=== PATIENT | male | born 1955 | race Caucasian/White ===

== ENCOUNTER 2021-09-19 12:26 | Outpatient (CLI) | payer MEDICARE, BC, SELFPAY ==
--- NOTE | 2021-09-19 13:00 | MR_ITS ---
[address] [address] Phone:?[phone] Fax:?[phone] Referring Physician Information: Adam Linares M.D. [address] [facility] [address] Phone:?[phone] Fax:?[phone] Patient:Irma Velazquez D.O.B:?1955 Sex:?Male Phone:?[phone] [facility] MRN:?[id number] Exam Date:?09/19/2021 ? EXAM: MR PROSTATE WITHOUT AND WITH CONTRAST CLINICAL INFORMATION: Elevated PSA. COMPARISON: None. TECHNICAL INFORMATION: Examination was performed on a 1.5T magnet. High- resolution T1 axial, T2 axial, T2 FSE sagittal and T2 FSE coronal images were obtained through the prostate gland and seminal vesicles. Diffusion images were obtained in the axial plane. 15 mL of Dotarem were injected with dynamic enhanced images of the prostate gland in the axial plane. T1 fat saturation sagittal and coronal images were obtained postinjection. Images were analyzed with 3-D postprocessing online under concurrent physician supervision using a separate [employer] workstation. INTERPRETATION: The prostate gland measures 6.4 x 5.3 x 7.7 cm (TV x AP x SI) for an estimated volume of 120 cc. Transitional and central zones: There is marked glandular and stromal hyperplasia with well encapsulated BPH nodules (PI-RADS 2). No focal CZ/TZ lesions concerning for clinically significant adenocarcinoma. Peripheral zones: No focal PZ lesions concerning for clinically significant adenocarcinoma (PI-RADS 1). Pelvis: No joseph transcapsular disease. Neurovascular bundles and seminal vesicles appear intact. No pelvic lymphadenopathy or evident bone marrow disease. CONCLUSION: Marked prostatomegaly with stigmata of BPH. No suspicious (PI-RADS 3, 4, or 5) lesions identified. No joseph transcapsular, godwin, or skeletal disease in the pelvis. PI-RADS Assessment Categories: Score 1 = very low; clinically significant disease highly unlikely Score 2 = low; clinically significant disease is unlikely Score 3 = intermediate; clinically significant disease is equivocal Score 4 = high; clinically significant disease is likely Score 5 = very high; clinically significant disease is highly likely Electronically signed on 09/20/2021 9:34:00 AM by Tin Garcia M.D.
== END 2021-09-19 12:27 | disposition home or self-care (01) ==
PROVIDERS: PCP Family Medicine; Visit Provider Urology
DX: R97.20 Elevated prostate specific antigen [PSA] (principal)
CPT/HCPCS: 72197; A9575

== ENCOUNTER 2022-05-12 14:56 | Outpatient (CLI) | payer MEDICARE, BC, SELFPAY | END 2022-05-12 14:57 | disposition home or self-care (01) | LOC: LAB 15:00 | PROVIDERS: PCP Family Medicine | DX: Z76.89 Persons encountering health services in other specified circumstances (principal) | CPT/HCPCS: 99001 ==

== ENCOUNTER 2022-08-21 07:46 | Outpatient (CLI) | payer MEDICARE, BC, SELFPAY | END 2022-08-21 07:47 | disposition home or self-care (01) | PROVIDERS: PCP Family Medicine; Visit Provider Family Medicine | DX: Z00.00 Encounter for general adult medical examination without abnormal findings (principal); R73.01 Impaired fasting glucose; R97.20 Elevated prostate specific antigen [PSA]; Z13.1 Encounter for screening for diabetes mellitus; Z13.6 Encounter for screening for cardiovascular disorders | CPT/HCPCS: 80053; 80061; 84153 ==

== ENCOUNTER 2022-11-25 14:50 | Outpatient (CLI) | payer MEDICARE, BC, SELFPAY | END 2022-11-25 14:51 | disposition home or self-care (01) | PROVIDERS: PCP Family Medicine; Visit Provider Urology | DX: R97.20 Elevated prostate specific antigen [PSA] (principal) | CPT/HCPCS: 36415; 99001 ==

== ENCOUNTER 2023-01-07 06:59 | Outpatient (CLI) | payer MEDICARE, BC, SELFPAY ==
--- NOTE | 2023-01-07 07:15 | MR_ITS ---
[facility] [address] [facility] [address] Phone:?[phone] Fax:?[phone] Referring Physician Information: Micah Peña M.D. [address] [facility] [address] Phone:?[phone] Fax:?[phone] Patient:Irma Velazquez D.O.B:?1955 Sex:?Male Phone:?[phone] [facility] MRN:?[id number] Exam Date:?01/07/2023 EXAM: MR PROSTATE WITHOUT AND WITH CONTRAST CLINICAL INFORMATION: Elevated PSA. COMPARISON: MRI from 09/19/2021. TECHNICAL INFORMATION: Examination was performed on a 1.5T magnet. High- resolution T1 axial, T2 axial, T2 FSE sagittal and T2 FSE coronal images were obtained through the prostate gland and seminal vesicles. Diffusion images were obtained in the axial plane. 16 mL of Dotarem were injected with dynamic enhanced images of the prostate gland in the axial plane. T1 fat saturation sagittal and coronal images were obtained postinjection. Images were analyzed with 3-D postprocessing online under concurrent physician supervision using a separate [employer] workstation. INTERPRETATION: The prostate gland measures 6.5 x 5.6 x 7.1 cm (TV x AP x SI) for an estimated volume of 135 cc, previously 120 cc. Transitional and central zones: There is marked glandular and stromal hyperplasia with well encapsulated BPH nodules (PI-RADS 2). No focal CZ/TZ lesions concerning for clinically significant adenocarcinoma. Peripheral zones: No focal PZ lesions concerning for clinically significant adenocarcinoma (PI-RADS 1). Pelvis: No joseph transcapsular disease. Neurovascular bundles and seminal vesicles appear intact. No pelvic lymphadenopathy or evident bone marrow disease. CONCLUSION: Stable exam. Marked prostatomegaly with stigmata of BPH. No suspicious (PI-RADS 3, 4, or 5) lesions identified. No joseph transcapsular, godwin, or skeletal disease in the pelvis. PI-RADS Assessment Categories: Score 1 = very low; clinically significant disease highly unlikely Score 2 = low; clinically significant disease is unlikely Score 3 = intermediate; clinically significant disease is equivocal Score 4 = high; clinically significant disease is likely Score 5 = very high; clinically significant disease is highly likely Electronically signed on 01/07/2023 4:34:00 PM by Tin Garcia M.D.
== END 2023-01-07 07:00 | disposition home or self-care (01) ==
LOC: MRI 07:01
PROVIDERS: PCP Family Medicine; Visit Provider Family Medicine
DX: R97.20 Elevated prostate specific antigen [PSA] (principal)
CPT/HCPCS: 72197; A9575

== ENCOUNTER 2023-01-13 07:15 | Outpatient (CLI) | payer MEDICARE, BC, SELFPAY ==
--- NOTE | 2023-01-13 08:44 | W.ANESCHARGE ---
Anesthesia Charges Start Date/Time Anesthesia Start Date: 01/13/23 Anesthesia Start Time: 08:14 Stop Date/Time Anesthesia Stop Date: 01/13/23 Anesthesia Stop Time: 08:42
--- NOTE | 2023-01-13 09:19 | W.ANESCHARGE ---
Anesthesia Charges Start Date/Time Anesthesia Start Date: 01/13/23 Anesthesia Start Time: 08:14 Stop Date/Time Anesthesia Stop Date: 01/13/23 Anesthesia Stop Time: 08:42
== END 2023-01-13 07:16 | disposition home or self-care (01) ==
LOC: OP CLINIC 07:15
PROVIDERS: PCP Family Medicine; Visit Provider Surgery
DX: Z12.11 Encounter for screening for malignant neoplasm of colon (principal); K64.4 Residual hemorrhoidal skin tags
CPT/HCPCS: 00811; 00812; 45378; J2704

== ENCOUNTER 2023-08-17 08:32 | Outpatient (CLI) | payer MEDICARE, BC, SELFPAY ==
--- OUTSIDE RECORDS SUMMARY | 2023-08-19 04:30 | XMS_ITS | Encounter Summary ---
Author Organization [facility] Address [address] [place] [address] Care Team Providers Care Library Media Specialist Name Role Phone Howard Becerra MD Primary Care Provide r Verito Montoya PA-C Unavailable [phone]- [phone] Weight, Jose Maria Zamora MD Unavailable [phone]- [phone] Howard Becerra MD Unavailable [phone]- [phone] SantiagoBlayne MD Unavailable [phone] Encounter Details Date Type Department Care Team (Late st Contact Info) Description 07/09/2020 [facility] Clinical Research [address] [place] [phone] Vic Sun Social History Tobacco Use Types Packs/Day Years Used Date Smoking Tobacco: Never Smokeless Tobacco: Never Alcohol Use Standard Drinks/Week Comments Yes 0 (1 standard drink = 0.6 oz pur e alcohol) 6 drinks per week - red wine- PHQ-2 Answer Date Recorded PHQ-2 Score 0 04/07/2018 Sex and Gender Information Value Date Recorded Sex Assigned at Male 05/02/2020 9:45 AM SUGAR REPROCESS OPERATOR HEAD Gender Identity Male 05/02/2020 9:45 AM SUGAR REPROCESS OPERATOR HEAD Sexual Orientation Straight 05/02/2020 9: 45 AM SUGAR REPROCESS OPERATOR HEAD documented as of this encounter Plan of Treatment Not on file documented as of this encounter Visit Diagnoses Not on filedocumented in this encounter Care Teams Library Media Specialist Relationship Specialty Start Date End Date Howard Becerra MD PCP - General Family Practice 09/07/14 Verito Montoya PA-C [address] [facility] [address] [place], [place] [id number] Physician Travel Writer Physician Travel Writer 02/26/15 Jose Maria Ruiz MD [address] [place] [id number] Urology 03/16/17 Howard Becerra MD [address] [id number] Assigned PCP 10/01/14 04/13/21 Blayne Henderson MD [address] [place] [id number] Dermatology 09/21/18 documented as of this encounter
--- OUTSIDE RECORDS SUMMARY | 2023-08-19 04:30 | XMS_ITS | Clinical Summary ---
Author Organization [facility] Address [address], [place] [address] Care Team Providers Care Material Manager Name Role Phone No Primary/Referring, Phnestor Primary Care Provider Unavailable Source Comments You are receiving this document as you are listed as the primary care provider,follow-up provider, or the patient has been referred to you for consultation.This is in compliance with the Medicare and[facility] E[facility] Incentive Program,which states Providers who transition their patient to another setting of careor provider of care or refers their patient to another provider of care shouldprovide summary care record for each transition of care or referral. [facility] Allergies No known active allergies Medications No known medications Active Problems Problem Noted Date Diagnosed Date Right knee pain 11/13/2012 Overview: Patellofemoral syndrome, right knee Immunizations Name Administration Dates Next Due IPV (Polio) 03/06/1993 Td 03/06/1993 YF (Yellow Fever) 03/06/1993 Social History Tobacco Use Types Packs/Day Years Used Date Smoking Tobacco: Never Smokeless Tobacco: Never Alcohol Use Standard Drinks/Week Comments Yes 0 (1 standard drink = 0.6 oz pur e alcohol) approximately 1 drink daily Sex and Gender Information Value Date Recorded Sex Assigned at Not on file Gender Identity Not on file Sexual Orientation Not on file Last Filed Vital Signs Vital Sign Reading Time Taken Comments Blood Pressure 112/73 08/12/2018 2:50 PM CDT Pulse - - Temperature 37 ??C (98.6 ??F) 08/12/2018 2:50 PM CDT Respiratory Rate - - Oxygen Saturation - - Inhaled Oxygen Concentration - - Weight 77.1 kg (170 lb) 03/24/2019 9:16 AM ASSEMBLER BODY Height 185.4 cm (6' 1) 03/24/2019 9:16 AM ASSEMBLER BODY Body Mass Index 22.43 03/24/2019 9:16 AM ASSEMBLER BODY Plan of Treatment Health Maintenance Due Date Last Done Comments Colon Cancer Screening Plan Due 1955 Hep C Screening (Preventive Services) 1955 PSA Screening Discussion 1955 Adult Preventive Visit 10/29/1973 Cholesterol 10/29/1990 Pneumococcal 65+ Yrs (1 - PCV) 10/29/2020 COVID-19 Vaccine (3 - season) 2022 05/25/2020, 05/05/2020 Influenza (Season Ended) 2023 020, 01/12/2019, 11/14/2017, Additional history exists DTaP/Tdap/Td (2 - Tdap) 09/20/2024 09/21/19 15, 03/27/2005, 03/06/1993 IPV (Polio) Aged Out 03/06/1993 No longer eligi ble based on patient's age to complete this topic HepA Aged Out 01/30/2006, 03/2005, 03/17/2005, Additional history exists No longer eligible based on patient's age to complete this topic Zoster/Shingles Completed 10/11/2018, 04/07/2018 HepB Aged Out No longer eligi ble based on patient's age to complete this topic Hib Aged Out No longer eligi ble based on patient's age to complete this topic MCV4 Aged Out No longer eligi ble based on patient's age to complete this topic Care Teams Material Manager Relationship Specialty Start Date End Date No Primary/Referring, Shai PCP - General 12/15/17
--- OUTSIDE RECORDS SUMMARY | 2023-08-19 04:30 | XMS_ITS | Clinical Summary ---
Author Organization [facility] Address [place], [place] [address] Care Team Providers Care Health And Social Care Teacher Name Role Phone Martin Rowe MD Primary Care Provider [phone] Allergies No known active allergies Medications No known medications Active Problems Problem Noted Date Diagnosed Date Elevated PSA 07/17/2020 Overview: Patient prefers yearly digital rectal exams of his prostate. Immunizations Name Administration Dates Next Due COVID-19 vaccine (Konokopia [employer] 30mcg/0.3mL) PF, MDV 12/19/2020,05/25/2020,05/05/2020 Hepatitis A (Adult) 01/30/2006,03/17/2005 Hepatitis A, Unspecified 01/30/2006,03/17/2005 Inactivated Polio Vaccine 03/06/1993 Influenza RIV4 (Age 18+ Years) PRESERV FREE 11/01 Influenza Virus, Unspecified 02/10/2011 Influenza, High-dose Quadriv alent Inactivated 11/30/2020 Influenza, IIV3 (Age >=3 years) 01/04/2015 Influenza, IIV4 11/14/2017 Influenza, IIV4 (=>6mos) MDV 01/12/2019 Td (Age >=7 Years) 03/27/2005,03/06/1993 Td, Preservative Free (age >= 7 Years) 6,08/22/1994 Tdap 09/20/2014 Typhoid (injectable) 03/17/2005 Yellow Fever (Stamaril) 03/06/1993 Zoster (Shingrix-RZV, recombinant) 10/11/2018, Family History Medical History Relation Name Comments Obesity Brother Abnormal EKG Father Dementia Father may have been t riggered by TBI; he of dementia at 754 Hypertension Mother Relation Name Status Comments Brother Alive Father (Age 75) Fell off l adder - facial trauma, ppt TBI, dementia Mother Alive Social History Tobacco Use Types Packs/Day Years Used Date Smoking Tobacco: Never Smokeless Tobacco: Never Tobacco Cessation:Counseling Given: Yes Alcohol Use Standard Drinks/Week Comments Yes 10 (1 standard drink = 0.6 oz pu re alcohol) Daily red wine PHQ-2 Answer Date Recorded PHQ-2 TOTAL SCORE 0 07/22/2021 Social Connections Answer Date Recorded Frequency of Communication with Friends and Fami ly Not on file 07/23/2022 Financial Resource Strain Answer Date R ecorded Difficulty of Paying Living Expenses 3 07/22/2021 Difficulty of Paying Living Expenses Not on file 07/22/2021 Food Insecurity Answer Date Recorded Worried About Running Out of Food in the Last Ye ar 1 07/22/2021 Transportation Needs Answer Date Record ed Lack of Transportation (Medical) 1 07/22/2021 Housing Stability Answer Date Recorded Unable to Pay for Housing in the Last Year 1 07/22/2021 Sex and Gender Information Value Date Recorded Sex Assigned at Male 09/15/2021 11:22 AM CDT Gender Identity Male 09/15/2021 11:22 AM CDT Sexual Orientation Straight 09/15/2021 11 :22 AM CDT Obstetrics History Last Filed Vital Signs Vital Sign Reading Time Taken Comments Blood Pressure 112/80 07/22/2021 8:03 AM CDT Pulse 66 07/22/2021 8:03 AM CDT Temperature 36.9 ??C (98.4 ??F) 07/16/2020 9:17 AM CD T Respiratory Rate 16 09/24/2020 10:4 1 AM CDT Oxygen Saturation 98% 07/22/2021 8:03 AM CDT Inhaled Oxygen Concentration - - Weight 80.2 kg (176 lb 11.2 oz) 07/22/2021 8:03 AM CDT Height 183.8 cm (6' 0.36) 07/22/2021 8:03 AM CD T Body Mass Index 23.73 07/22/2021 8:03 AM CDT Plan of Treatment Health Maintenance Due Date Last Done Comments Pneumococcal series for age 65+ (1 of 1 - PCV) 10/29/2020 BMI (ht and wt on same day) for age 18+ 07/22/2022 07/22/2021, 07/16/2020 Depression screening for age 12+ 07/22/2022 07/22/2021, 07/17/2020, 07/16/2020 Medicare Wellness for age 65+ 07/23/2022 07/22/2021 Fecal testing non-DNA (FIT,FOBT,iFOBT) for age 45-75 07/26/2022 07/26/2021, 07/24/2020 COVID-19 vaccine series ( season) 2022 12/19/2020, 05/25/2020, 05/05/2020 Influenza for age 65+ 11/01/2023 11/30/2020 , 11/28/2019, 01/12/2019, Additional history exists Tetanus booster 09/20/2024 09/20/2014, 03/03, 03/27/2005, Additional history exists Lipids for age 45-75 07/22/2026 07/22/2021, 07/17/19 21 Tdap Completed 09/20/2014 Zoster (shingles) series for age 50+ Completed 10/11/2018, 04/07/2018 Hepatitis C screening for ag e 18-79 Completed 07/22/2021 Procedures Procedure Name Priority Date/Time Associated Diagnosis Comments OCCULT BLOOD IFOBT STOOL Routine 07/26/2021 3:25 PM CDT Screening for colon cancer ANTI HCV Routine 07/22/2021 9:03 AM CDT Need for hepatitis C screening test LIPID PANEL W REFLEX MEASURED LDL Routine 07/22/2021 9:03 AM CDT Screening for hyperlipidemia from Last 3 Months or Most Recently Relevant to Health Maintenance Results * OCCULT BLOOD IFOBT STOOL [[id number]] (07/26/2021 3:25 PM CDT) STOOL BLOOD ,IFOBT Negative Negative 08/07/2021 3:36 PM CDT [facility] Stool STOOL SPECIMEN / Unknown Non-Blood / Unknown 07/26/2021 3:25 PM CDT 08/07/2021 3:25 PM CDT Martin Rowe MD LABORATORY [facility] [address] [place] [address], * LIPID PANEL W REFLEX MEASURED LDL (07/22/2021 9:03 AM CDT) CHOLESTEROL,TOTAL 181 100 - 199 mg/dL 07/22/2021 5:28 PM CDT [facility] TRIGLYCERIDES 61 <150 mg/dL 07/22/2021 5:28 PM CDT [facility] HDL CHOLESTEROL 57 >40 mg/dL 5:28 PM CDT [facility] NON-HDL CHOLESTEROL 124 <145 mg/dl 07/22/2021 5:28 PM CDT [facility] CHOL/HDL RATIO 3.18 <4.50 07/22/2021 5:28 PM CDT [facility] LDL CHOLESTEROL 112 <=130 mg/dL 07/22/2021 5:28 PM CDT [facility] VLDL CHOLESTEROL 12 <=30 mg/dL 07/22/2021 5:28 PM CDT [facility] PROVIDER ORDERED STATUS RANDOM 07/22/2021 5:28 PM CDT [facility] Blood BLOOD SPECIMEN / Unknown Venipuncture / Unknown 07/22/2021 9:03 AM CDT 07/22/2021 9:07 AM CDT Martin Rowe MD CHEMISTRY [facility] [address] [place] [address], [place] * ANTI HCV (07/22/2021 9:03 AM CDT) HEPATITIS C ANTIBODY Non-React trev Non-React trev 07/22/2021 5:38 PM CDT [facility] Comment:Antibodies to HCV no t detected; does not exclude the possibility of exposure to HCV. Blood BLOOD SPECIMEN / Unknown Venipuncture / Unknown 07/22/2021 9:03 AM CDT 07/22/2021 9:07 AM CDT Martin Rowe MD SEND OUTS [facility] [address] [place] [address], from Last 3 Months or Most Recently Relevant to Health Maintenance Advance Directives Documents on File Type Date Recorded Patient Zone Supervisor Firearms Expl anation Healthcare Directive 10/14/2021 3:37 PM HE ALTH CARE DIRECTIVE 10/09/2021 Care Teams Health And Social Care Teacher Relationship Specialty Start Date End Date Matrin Rowe MD [facility] [place] [address] [address] PCP - General Family Practice 07/22/21
--- OUTSIDE RECORDS SUMMARY | 2023-08-19 04:30 | XMS_ITS | Encounter Summary ---
Author Organization [facility] Address [address] [place] [address] Care Team Providers Care Fit Model Name Role Phone Howard Becerra MD Primary Care Provide r Verito Montoya PA-C Unavailable [phone]- [phone] Weight, Jose Maria Zamora MD Unavailable [phone] Howard Becerra MD Unavailable [phone] SantiagoBlayne coleman MD Unavailable [phone] Henry Gupta MD Unavailable Verito Montoya PA-C Unavailable [phone]- [phone] Reason for Visit * Reason Onset Date Comments Appointment 07/23/2018 Cryotherapy Encounter Details Date Type Department Care Team (Late st Contact Info) Description 07/23/2018 Telephone [facility] [address] [facility] [address] [place] [address] Verito Montoya PA-C [address] [place], [place] [id number] Appointment (Cryotherapy) Social History Tobacco Use Types Packs/Day Years Used Date Smoking Tobacco: Never Smokeless Tobacco: Never Alcohol Use Standard Drinks/Week Comments Yes 0 (1 standard drink = 0.6 oz pur e alcohol) 6 drinks per week - red wine- PHQ-2 Answer Date Recorded PHQ-2 Score 0 04/07/2018 Sex and Gender Information Value Date Recorded Sex Assigned at Male 05/02/2020 9:45 AM MANAGER UNDERWRITING Gender Identity Male 05/02/2020 9:45 AM MANAGER UNDERWRITING Sexual Orientation Straight 05/02/2020 9: 45 AM MANAGER UNDERWRITING documented as of this encounter Miscellaneous Notes * Telephone Encounter - Shreyas Mishra - 07/23/2018 11:53 AM CDT [facility] Phone Message May a detailed message be left on voicemail: yes Reason for Call: Other: Pt calling to schedule Cryotherapy per 07/21 visit summary. Please call Pt to discuss. Thanks. Action Taken: Message routed to: [facility] Derm documented in this encounter Plan of Treatment Not on file documented as of this encounter Visit Diagnoses Not on filedocumented in this encounter Care Teams Fit Model Relationship Specialty Start Date End Date Howard Becerra MD PCP - General Family Practice 09/07/14 Verito Montoya PA-C [address] [place] [address] [address] [place], [place] [phone] Physician Wheel Inspector Physician Wheel Inspector 02/26/15 Jose Maria Ruiz MD [address] [place] [address] Urology 03/16/17 Howard Becerra MD [address] [place] [address] Assigned PCP 10/01/14 04/13/21 Blayne Henderson MD [address] [place], [place] [phone] Dermatology 09/21/18 Henry Gupta MD [address] [place] [address] Assigned Surgical Provider 12/23/19 04/21/20 Verito Montoya PA-C [address] [place] [address] Assigned Pediatric Specialist Provider 12/23/19 04/01/20 documented as of this encounter
--- OUTSIDE RECORDS SUMMARY | 2023-08-19 04:30 | XMS_ITS | Clinical Summary ---
Author Organization [facility] Address [address] [place] [address] Care Team Providers Care Asset Protection Agent Name Role Phone Howard Becerra MD Primary Care Provide r Verito Montoya PA-C Unavailable [phone]- [phone] Weight, Jose Maria Zamora MD Unavailable [phone]- [phone] SantiagoBlayne MD Unavailable [phone] Allergies Active Allergy Reactions Criticality Noted Date Comments No Known Drug Allergy 03/29/2004 Medications Medication Sig Dispensed Refills Start Date End Date Status ranitidine (ZANTAC) 150 MG tabletIndications:G astroesophageal reflux disease, esophagitis presence not specified Take 1 tablet (150 mg) by mouth daily 180 tablet 3 04/07/2018 Active Additional Information Patient not taking.Reported on 10/19/2018 cyclobenzaprine (FLEXERIL) 10 MG tabletIndications:L ow back pain, unspecified back pain laterality, unspecified chronicity, with sciatica presence unspecified Take 0.5-1 tablets (5-10 mg) by mouth 3 times daily as needed for muscle spasms 21 tablet 08/11/2018 Active Additional Information Patient not taking.Reported on 10/19/2018 meloxicam (MOBIC) 15 MG tabletIndications:L ow back pain, unspecified back pain laterality, unspecified chronicity, with sciatica presence unspecified Take 1 tablet (15 mg) by mouth daily 10 tablet 08/11/2018 Active Additional Information Patient not taking.Reported on 10/19/2018 Active Problems Problem Noted Date Diagnosed Date Multiple benign nevi 03/01/2015 Seborrheic keratosis 03/01/2015 Skin cancer screening 03/01/2015 Anxiety 07/13/2014 Multiple pigmented nevi 04/09/2012 Hepatitis B carrier Erectile dysfunction GERD (gastroesophageal reflux disease) CARDIOVASCULAR SCREENING; LDL GOAL LESS THAN 160 Resolved Problems Problem Noted Date Diagnosed Date Resolved Date Advanced directives, counseling/discussion 04/09/2012 08/17/2023 Immunizations Name Administration Dates Next Due HEPA 01/30/2006,03/17/2005 Influenza (IIV3) PF 01/04/2015,11/29/2009 Influenza Vaccine >6 months,quad, PF 11/14/2017 TD,PF 7+ (Tenivac) 03/27/2005,08/22/1994 TDAP Vaccine (Adacel) 09/20/2014 Typhoid IM 03/17/2005 Zoster recombinant adjuvanted (SHINGRIX) 019,04/07/2018 Family History Medical History Relation Comments Genetic Disorder Brother 2 brother has two children with CP Obesity Brother 3 Respiratory Brother 4 uses CPAP Obesity Brother 5 Allergies Daughter 1 Cerebrovascular Disease Daughter 2 Alzheimer Disease Father demensia Gastrointestinal Disease Father hernia repair Hypertension Father Breast Cancer Maternal Grandmother Diabetes Mother type 2 C.A.D. Paternal Grandfather Cerebrovascular Disease Paternal Grandfather C.A.D. Paternal Uncle Melanoma No family hx of Skin Cancer No family hx of Relation Status Comments Brother 1 Alive Brother 2 Brother 3 Brother 4 Brother 5 Daughter 1 Alive adoptive age 13 Daughter 2 Father Dementia Maternal Grandfather Maternal Grandmother Mother Alive HTN Paternal Grandfather Paternal Grandmother Paternal Uncle Son Alive age 11 Social History Tobacco Use Types Packs/Day Years Used Date Smoking Tobacco: Never Smokeless Tobacco: Never Tobacco Cessation:Counseling Given: Yes Alcohol Use Standard Drinks/Week Comments Yes 0 (1 standard drink = 0.6 oz pur e alcohol) 6 drinks per week - red wine- PHQ-2 Answer Date Recorded PHQ-2 Score 0 04/07/2018 Adolescent Education Answer Date Record ed Getting School Help Needed Not on file 12/14 Sex and Gender Information Value Date Recorded Sex Assigned at Male 05/02/2020 9:45 AM COAL MILL OPERATOR Gender Identity Male 05/02/2020 9:45 AM COAL MILL OPERATOR Sexual Orientation Straight 05/02/2020 9: 45 AM COAL MILL OPERATOR Last Filed Vital Signs Vital Sign Reading Time Taken Comments Blood Pressure 135/80 10/19/2018 10:59 AM CDT Pulse 74 10/19/2018 10:59 AM CDT Temperature 36.6 ??C (97.8 ??F) 04/07/2018 7:53 AM CS T Respiratory Rate 16 04/07/2018 7:53 AM COAL MILL OPERATOR Oxygen Saturation 99% 04/07/2018 7:53 AM COAL MILL OPERATOR Inhaled Oxygen Concentration - - Weight 79.6 kg (175 lb 8 oz) 04/07/2018 7:53 AM COAL MILL OPERATOR Height 182.9 cm (6') 04/07/2018 7:53 AM COAL MILL OPERATOR Body Mass Index 23.8 04/07/2018 7:53 AM COAL MILL OPERATOR Plan of Treatment Not on file Advance Directives For more information, please contact: [phone] * Full Code (Latest Code Status on File) Date Activated Date Inactivated Comments 04/09/2012 12:34 PM * No Code Status Date Activated Date Inactivated Comments 04/01/2004 6:53 AM 04/01/2004 7:53 AM Care Teams Asset Protection Agent Relationship Specialty Start Date End Date Howard Becerra MD PCP - General Family Practice 09/07/14 Verito Montoya PA-C [address] [place] [address] [phone] Physician Science Consultant Physician Science Consultant 02/26/15 Jose Maria Ruiz MD [address] [place] [address] Urology 03/16/17 Blayne Henderson MD [address] [place] [address] Dermatology 09/21/18
--- OUTSIDE RECORDS SUMMARY | 2023-08-19 04:30 | XMS_ITS ---
Author Organization [facility] Address [address] [place] [address] Care Team Providers Care Gallery Or Museum Technician Name Role Phone Unavailable Unavailable Unavailable Surgery Details Not on file Complications Check Surgery Details section. Procedure Estimated Blood Loss Check Surgery Details section. Procedure Findings Check Surgery Details section. Procedure Specimens Taken Check Surgery Details section.
--- OUTSIDE RECORDS SUMMARY | 2023-08-19 04:30 | XMS_ITS | Encounter Summary ---
Author Organization [facility] Address [address] [place] [address] Care Team Providers Care Infection Control Practitioner Name Role Phone Howard Becerra MD Primary Care Provide r Verito Montoya PA-C Unavailable [phone]- [phone] Weight, Jose Maria Zamora MD Unavailable [phone] Howard Becerra MD Unavailable [phone]- [phone] SantiagoBlayne MD Unavailable [phone] Henry Gupta MD Unavailable Verito Montoya PA-C Unavailable [phone]- [phone] Encounter Details Date Type Department Care Team (Late st Contact Info) Description 07/30/2018 MyC Medical Advice [facility] Dermatology [address] [address] Verito Montoya PA-C [address] [place], [place] [phone] Social History Tobacco Use Types Packs/Day Years Used Date Smoking Tobacco: Never Smokeless Tobacco: Never Alcohol Use Standard Drinks/Week Comments Yes 0 (1 standard drink = 0.6 oz pur e alcohol) 6 drinks per week - red wine- PHQ-2 Answer Date Recorded PHQ-2 Score 0 04/07/2018 Sex and Gender Information Value Date Recorded Sex Assigned at Male 05/02/2020 9:45 AM SCIENTIST PROPAGATOR Gender Identity Male 05/02/2020 9:45 AM SCIENTIST PROPAGATOR Sexual Orientation Straight 05/02/2020 9: 45 AM SCIENTIST PROPAGATOR documented as of this encounter Miscellaneous Notes * Telephone Encounter - Macie Yancey CMA - 09/23/2018 7:44 AM CDT Kurt, I apologize for the delayed response, I am one of the medical assistants that works in Dermatology surgery with Dr. Gupta. I forwarded your concern to Dr. Gupta and he says that at your appointment we can take a look at it, if there is a concern that it is cancer we could do a frozen section. If itis a cyst we would remove the whole thing and send it for permanent sections, cysts can get bigger quickly if they get inflamed. Please call us at [phone] or let us know what your schedule looks like so we can get you scheduled with Dr. Gupta. Thanks, Macie Obrien CMA documented in this encounter Plan of Treatment Not on file documented as of this encounter Visit Diagnoses Not on filedocumented in this encounter Care Teams Infection Control Practitioner Relationship Specialty Start Date End Date Howard Becerra MD PCP - General Family Practice 09/07/14 Verito Montoya PA-C [address] [facility] 98 [place], [place] [phone] Physician Sustainability Executive Director Physician Sustainability Executive Director 02/26/15 Jose Maria Ruiz MD [address] [place], [place] 819[address] Urology 03/16/17 Howard Becerra MD [address] [address] Assigned PCP 10/01/14 04/13/21 Blayne Henderson MD 909 [place] [address] MD Carr 09/21/18 Henry Gupta MD [address] [place] [address] Assigned Surgical Provider 12/23/19 04/21/20 Verito Montoya PA-C [address] [place] [address] Assigned Pediatric Specialist Provider 12/23/19 04/01/20 documented as of this encounter
--- OUTSIDE RECORDS SUMMARY | 2023-08-19 04:30 | XMS_ITS | Encounter Summary ---
Author Organization [facility] Address [address] [place] [address] Care Team Providers Care Supervisor Pile Driving Name Role Phone Howard Becerra MD Primary Care Provide r Verito Montoya PA-C Unavailable [phone]- [phone] Weight, Jose Maria Zamora MD Unavailable [phone]- [phone] Howard Becerra MD Unavailable [phone]- [phone] Howard Becerra MD Unavailable [phone]- [phone] Blayne Henderson MD Unavailable [phone] Henry Gupta MD Unavailable Verito Montoya PA-C Unavailable [phone]- [phone] Encounter Details Date Type Department Care Team (Late st Contact Info) Description 03/30/[address] [address] [facility] Social History Tobacco Use Types Packs/Day Years Used Date Smoking Tobacco: Never Smokeless Tobacco: Never Alcohol Use Standard Drinks/Week Comments Yes 0 (1 standard drink = 0.6 oz pure alcohol) 8-10 drinks per week - red wine- PHQ-2 Answer Date Recorded PHQ-2 Score 0 03/09/2018 Sex and Gender Information Value Date Recorded Sex Assigned at Male 05/02/2020 9:45 AM RN DOCUMENT IMPROVEMENT Gender Identity Male 05/02/2020 9:45 AM RN DOCUMENT IMPROVEMENT Sexual Orientation Straight 05/02/2020 9: 45 AM RN DOCUMENT IMPROVEMENT documented as of this encounter Plan of Treatment Not on file documented as of this encounter Visit Diagnoses Not on filedocumented in this encounter Care Teams Supervisor Pile Driving Relationship Specialty Start Date End Date Howard Becerra MD PCP - General Family Practice 09/07/14 Howard Becerra MD [address] [id number] PCP - Assigned PCP 10/01/14 05/04/18 Verito Montoya PA-C [address] [place] [address] 349265 Physician X Ray Consultant Physician X Ray Consultant 02/26/15 Jose Maria Ruiz MD [address] [place] [address] [id number] Urology 03/16/17 [place] [address] [place] [address] Assigned PCP 10/01/14 04/13/21 Blayne Henderson MD [address] [place] [address] [phone] Dermatology 09/21/18 Henry Gupta MD [address] [place] [address] 269115 Assigned Surgical Provider 12/23/19 04/21/20 Verito Montoya PA-C [address] [place] [address] [id number] Assigned Pediatric Specialist Provider 12/23/19 04/01/20 documented as of this encounter
--- OUTSIDE RECORDS SUMMARY | 2023-08-19 04:30 | XMS_ITS | Encounter Summary ---
Author Organization [facility] Address [address] [place] [address] Care Team Providers Care Public Relations Supervisor Name Role Phone Howard Becerra MD Primary Care Provide r Verito Montoya PA-C Unavailable [phone]- [phone] Weight, Jose Maria Zamora MD Unavailable [phone]- [phone] Howard Becerra MD Unavailable [phone]- [phone] Howard Becerra MD Unavailable [phone]- [phone] Blayne Henderson MD Unavailable [phone] Henry Gupta MD Unavailable Verito Montoya PA-C Unavailable +1- [phone] Reason for Visit * Reason Onset Date Comments Refill Request 04/07/2018 ranitidine Encounter Details Date Type Department Care Team (Late st Contact Info) Description 04/07/[address] [address] Howard Becerra MD [address] [address] Refill Request (ranitidine ) Social History Tobacco Use Types Packs/Day Years Used Date Smoking Tobacco: Never Smokeless Tobacco: Never Alcohol Use Standard Drinks/Week Comments Yes 0 (1 standard drink = 0.6 oz pur e alcohol) 6 drinks per week - red wine- PHQ-2 Answer Date Recorded PHQ-2 Score 0 04/07/2018 Sex and Gender Information Value Date Recorded Sex Assigned at Male 05/02/2020 9:45 AM MEDICAL LEAD Gender Identity Male 05/02/2020 9:45 AM MEDICAL LEAD Sexual Orientation Straight 05/02/2020 9: 45 AM MEDICAL LEAD documented as of this encounter Miscellaneous Notes * Telephone Encounter - Lino Lindquist RN - 04/07/2018 8:40 AM MEDICAL LEAD This med was hx. Pt was seen in clinic on 04/07/18. Please send in refill. MAKENNA Huynh CAL LEAD documented in this encounter Plan of Treatment Not on file documented as of this encounter Visit Diagnoses Diagnosis Gastroesophageal reflux disease, esophagitis presence not specified- Primary documented in this encounter Care Teams Public Relations Supervisor Relationship Specialty Start Date End Date Howard Becerra MD PCP - General Family Practice 09/07/14 Howard Becerra MD [address] [address] PCP - Assigned PCP 10/01/14 05/04/18 Verito Montoya PA-C 420 [facility] 98 [place], [place] 3[address] Physician Structural Engineer Physician Structural Engineer 02/26/15 Jose Maria Ruiz MD 909 [place], [place] 325335 Urology 03/16/17 Howard Becerra MD 2270 [facility] 200 [place] [address] Assigned PCP 10/01/14 04/13/21 Blayne Henderson MD 909 [place] [address] MD Carr 09/21/18 Henry Gupta MD 909 [place], [place] 248445 Assigned Surgical Provider 12/23/19 04/21/20 Verito Montoya PA-C [address] [place] [address] [id number] Assigned Pediatric Specialist Provider 12/23/19 04/01/20 documented as of this encounter
--- OUTSIDE RECORDS SUMMARY | 2023-08-19 04:30 | XMS_ITS | Referral Summary ---
Author Organization [facility] Address [address] [place] [address] Care Team Providers Care Personal Lines Agent Name Role Phone Unavailable Primary Care Provider Unavailabl e Source Comments Patient records contain information from all sites at [facility]. For routine questions regarding patient records, call [phone] during business hours, M-F 8:00 AM - 5:00 PM Central Time. Record requests for emergency care only can be directed to [phone] at any time.[facility] Medications Medication Sig Dispensed Refills Start Date End Date Status tadalafiL (Cialis) 5 mg tablet Take 1 tablet (5 mg total) by mouth daily. 30 tablet 11 12/02/2022 Active Social History Tobacco Use Types Packs/Day Years Used Date Smoking Tobacco: Never Assessed Nutrition Answer Date Recorded Nutrition: EVOO Fat Source Unknown 11/07 Nutrition: Servings of Fruits/Vegetables per Day Not on file 11/07/2021 Dental Answer Date Recorded Dental: Regular Dentist Unknown 11/08/19 22 Sex and Gender Information Value Date Recorded Sex Assigned at Not on file Gender Identity Not on file Sexual Orientation Not on file Last Filed Vital Signs Vital Sign Reading Time Taken Comments Blood Pressure 125/82 11/19/2021 9:56 AM CDT Pulse 72 11/19/2021 9:56 AM CDT Temperature - - Respiratory Rate - - Oxygen Saturation - - Inhaled Oxygen Concentration - - Weight - - Height - - Body Mass Index - - Plan of Treatment Not on file Procedures Procedure Name Priority Date/Time Associated Diagnosis Comments EXTI BASIC METABOLIC PANEL, S/P Routine 07/22/2021 9:03 AM CDT from Last 3 Months or Most Recently Relevant to Health Maintenance [address] [place], [place] [address]
--- OUTSIDE RECORDS SUMMARY | 2023-08-19 04:30 | XMS_ITS | Referral Summary ---
Author Organization [facility] Address [address] [place] [address] Care Team Providers Care Manager Statistical Name Role Phone Howard Becerra MD Primary Care Provide r Verito Montoya PA-C Unavailable +1- [phone] Weight, Jose Maria Zamora MD Unavailable [phone]- [phone] SantiagoBlayne MD Unavailable [phone] Allergies Active Allergy Reactions Criticality Noted Date [...] IM 03/17/2005 Zoster recombinant adjuvanted (SHINGRIX) 019,04/07/2018 Social History Tobacco Use Types Packs/Day Years [...] Sex Assigned at Male 05/02/2020 9:45 AM ACCOUNTS COLLECTOR Gender Identity Male 05/02/2020 9:45 AM ACCOUNTS COLLECTOR Sexual Orientation Straight 05/02/2020 9: 45 AM ACCOUNTS COLLECTOR Last Filed Vital Signs Vital Sign Reading Time Taken Comments Blood Pressure 135/80 10/19/2018 10:59 AM CDT Pulse 74 10/19/2018 10:59 AM CDT Temperature 36.6 ??C (97.8 ??F) 04/07/2018 7:53 AM CS T Respiratory Rate 16 04/07/2018 7:53 AM ACCOUNTS COLLECTOR Oxygen Saturation 99% 04/07/2018 7:53 AM ACCOUNTS COLLECTOR Inhaled Oxygen Concentration - - Weight 79.6 kg (175 lb 8 oz) 04/07/2018 7:53 AM ACCOUNTS COLLECTOR Height 182.9 cm (6') 04/07/2018 7:53 AM ACCOUNTS COLLECTOR Body Mass Index 23.8 04/07/2018 7:53 AM ACCOUNTS COLLECTOR Plan of Treatment Not on file Advance Directives For more information, please contact: [phone] * Full Code (Latest Code Status on File) Date Activated Date Inactivated Comments 04/09/2012 12:34 PM * No Code Status Date Activated Date Inactivated Comments 04/01/2004 6:53 AM 04/01/2004 7:53 AM Care Teams Manager Statistical Relationship Specialty Start Date End Date Howard Becerra MD PCP - General Family Practice 09/07/14 Verito Montoya PA-C [address] [place] [address] 98 [place], [place] [phone] Physician Consulting Database Administrator Physician Consulting Database Administrator 02/26/15 Jose Maria Ruiz MD [address] [place] [address] [id number] Urology 03/16/17 Blayne Henderson MD [address] [place] [address] Dermatology 09/21/18
--- OUTSIDE RECORDS SUMMARY | 2023-08-19 04:30 | XMS_ITS | Clinical Summary ---
Author Organization [facility] Address [address] [place] [address] Care Team Providers Care Executive Pilot Name Role Phone Unavailable Primary Care Provider Unavailabl e Source Comments Patient records contain information from all sites at [facility]. For routine questions regarding patient records, call [phone] during business hours, M-F 8:00 AM - 5:00 PM Central Time. Record requests for emergency care only can be directed to [phone] at any time.[facility] Medications Medication Sig Dispensed Refills Start Date [...] Mass Index - - Plan of Treatment Health Maintenance Due Date Last Done Comments CT Colonography 1955 Cologuard 1955 Colonoscopy 1955 Colorectal Cancer Screening 1955 FIT 1955 Hepatitis C Screening 1955 COVID-19 Vaccine (4 - 2022-2 4 season) 2022 12/19/2020, 05/25/2020, 05/05/2020 Depression Screening (Annual PHQ-2) 03/02/2023 Fall Risk Screen (Annual) 03/02/2023 Fasting Glucose for Diabetes Screening 07/22/2024 07/22/2021, 04/07/2018 DTaP,Tdap,and Td Vaccines (2 - Td or Tdap) 09/20/2024 09/20/2014, 03/27/2005, 03/27/2005, Additional history exists Zoster Vaccines Completed 10/11/2018, 04/07/2018 Pneumococcal vaccine (65+ years) Completed 08/22/19 Influenza Vaccine Completed 12/02/2022, , 11/30/2020, Additional history exists Procedures Procedure Name Priority Date/Time Associated Diagnosis Comments EXTI BASIC METABOLIC PANEL, S/P Routine 07/22/2021 9:03 AM CDT from Last 3 Months or Most Recently Relevant to Health Maintenance [address] [place], [place] [address]
--- OUTSIDE RECORDS SUMMARY | 2023-08-19 04:30 | XMS_ITS | Encounter Summary ---
Author Organization [facility] Address [address] [place] [address] Care Team Providers Care Tile Burner Name Role Phone Howard Becerra MD Primary Care Provide r Verito Montoya PA-C Unavailable +1- [phone] Weight, Jose Maria Zamora MD Unavailable +1- [phone] Howard Becerra MD Unavailable +1- [phone] SantiagoBlayne coleman MD Unavailable [phone] Henry Gupta MD Unavailable Verito Montoya PA-C Unavailable +1- [phone] Reason for Visit * Reason Onset Date Comments Appointment 09/08/2018 schedule surgery Encounter Details Date Type Department Care Team (Late st Contact Info) Description 09/08/2018 Telephone [facility] 909 [facility] [address] [place] [address] Verito Montoya PA-C 830 [place], [place] [phone] Appointment (schedule surgery ) Social History Tobacco Use Types Packs/Day Years Used Date Smoking Tobacco: Never Smokeless Tobacco: Never Alcohol Use Standard Drinks/Week Comments Yes 0 (1 standard drink = 0.6 oz pur e alcohol) 6 drinks per week - red wine- PHQ-2 Answer Date Recorded PHQ-2 Score 0 04/07/2018 Sex and Gender Information Value Date Recorded Sex Assigned at Male 05/02/2020 9:45 AM WEB SITE DESIGNER Gender Identity Male 05/02/2020 9:45 AM WEB SITE DESIGNER Sexual Orientation Straight 05/02/2020 9: 45 AM WEB SITE DESIGNER documented as of this encounter Miscellaneous Notes * Telephone Encounter - Sarah Ceballos LPN - 10/07/2018 11:28 AM CDT Pt scheduled with Dr. Henderson. Sarah Ceballos LPN * Telephone Encounter - Raquel Pacheco EMT - 09/09/2018 1:25 PM CDT Left message for patient to call back to schedule consult/surgery with Dr. Gupta or Dr. Lui. * Telephone Encounter - Mae Quintero CMA - 09/08/2018 12:13 PM CDT Please see [employer] message on 07/30/18 to see if there needs to be a consult only appointment first. Referral was placed 08/02/18. Patient is ready to schedule. Please call him and schedule in an appropriate time. Mae Quintero CMA * Telephone Encounter - Andre Perez - 09/08/2018 11:22 AM CDT [facility] Call Center Phone Message May a detailed message be left on voicemail: yes Reason for Call: Other: Kurt calling to schedule surgery. Please call him as soon as possible to schedule. Action Taken: Message routed to: [facility] documented in this encounter Plan of Treatment Not on file documented as of this encounter Visit Diagnoses Not on filedocumented in this encounter Care Teams Tile Burner Relationship Specialty Start Date End Date Howard Becerra MD PCP - General Family Practice 09/07/14 Verito Montoya PA-C [address] [place] [address] 98 [place], [place] [address]345 Physician Senior Accounts Payable Clerk Physician Senior Accounts Payable Clerk 02/26/15 Jose Maria Ruiz MD [address] [place] [address] [id number] Urology 03/16/17 Howard Becerra MD [address] [place] [address] [phone] Assigned PCP 10/01/14 04/13/21 Blayne Henderson MD [address] [place] [address] [phone] Dermatology 09/21/18 Henry Gupta MD [address] [place] [address] 640225 Assigned Surgical Provider 12/23/19 04/21/20 Verito Montoya PA-C [address] [place] [address] Assigned Pediatric Specialist Provider 12/23/19 04/01/20 documented as of this encounter
--- OUTSIDE RECORDS SUMMARY | 2023-08-19 04:30 | XMS_ITS | Encounter Summary ---
Author Organization [facility] Address [address] [place] [address] Care Team Providers Care Academic Coordinator Name Role Phone Howard Becerra MD Primary Care Provide r Verito Montoya PA-C Unavailable +1- [phone] Weight, Jose Maria Zamora MD Unavailable [phone]- [phone] Howard Becerra MD Unavailable +1- [phone] SantiagoBlayne coleman MD Unavailable [phone] Henry Gupta MD Unavailable Verito Montoya PA-C Unavailable +1- [phone] Reason for Visit * Reason Onset Date Comments Appointment 07/30/2018 Dermatofibroma r emoval Encounter Details Date Type Department Care Team (Late st Contact Info) Description 07/30/2018 Telephone [facility] Dermatology [address] [facility] 3rd [place] [address] Verito Montoya PA-C [address] [place], [place] [phone] Appointment (Dermatofibroma removal) Social History Tobacco Use Types Packs/Day Years Used Date Smoking Tobacco: Never Smokeless Tobacco: Never Alcohol Use Standard Drinks/Week Comments Yes 0 (1 standard drink = 0.6 oz pur e alcohol) 6 drinks per week - red wine- PHQ-2 Answer Date Recorded PHQ-2 Score 0 04/07/2018 Sex and Gender Information Value Date Recorded Sex Assigned at Male 05/02/2020 9:45 AM PHARMACY SERVICES REPRESENTATIVE Gender Identity Male 05/02/2020 9:45 AM PHARMACY SERVICES REPRESENTATIVE Sexual Orientation Straight 05/02/2020 9: 45 AM PHARMACY SERVICES REPRESENTATIVE documented as of this encounter Miscellaneous Notes * Telephone Encounter - KaydenRadha walsh - 07/30/2018 3:38 PM CDT [facility] Phone Message May a detailed message be left on voicemail: yes Reason for Call: Other: per pt- stated he wants to get his Dermatofibroma removed, as discussed in last visit with verito, please call pt thanks! Action Taken: Message routed [facility] derm documented in this encounter Plan of Treatment Not on file documented as of this encounter Visit Diagnoses Not on filedocumented in this encounter Care Teams Academic Coordinator Relationship Specialty Start Date End Date Howard Becerra MD PCP - General Family Practice 09/07/14 Verito Montoya PA-C [address] [facility] 98 [place], [place] [address] Physician Blanket Inspector Physician Blanket Inspector 02/26/15 Jose Maria Ruiz MD [address] [place] [address] Urology 03/16/17 Howard Becerra MD [address] [place] [address] Assigned PCP 10/01/14 04/13/21 Blayne Henderson MD [address] [place] [address] Dermatology 09/21/18 Henry Gupta MD 9 [place] [address] Assigned Surgical Provider 12/23/19 04/21/20 Verito Montoya PA-C [address] [place] [id number] Assigned Pediatric Specialist Provider 12/23/19 04/01/20 documented as of this encounter
== END 2023-08-17 08:33 | disposition home or self-care (01) ==
LOC: NFLDREF 08-19 04:28
PROVIDERS: PCP Family Medicine; Referring Provider Family Medicine; Visit Provider Family Medicine
DX: Z00.00 Encounter for general adult medical examination without abnormal findings (principal); R97.20 Elevated prostate specific antigen [PSA]; N40.0 Benign prostatic hyperplasia without lower urinary tract symptoms; R73.01 Impaired fasting glucose; Z13.1 Encounter for screening for diabetes mellitus; Z13.6 Encounter for screening for cardiovascular disorders
CPT/HCPCS: 80061; 82947; G0103

== ENCOUNTER 2024-01-14 10:05 | Outpatient (CLI) | payer MEDICARE, BC, SELFPAY ==
--- OUTSIDE RECORDS SUMMARY | 2024-01-17 15:25 | XMS_ITS ---
Author Organization [facility] Address [address] [place] [address] Care Team Providers Care Pound Attendant Name Role Phone Unavailable Unavailable Unavailable Surgery Details Not on file Complications Check Surgery Details section. Procedure Estimated Blood Loss Check Surgery Details section. Procedure Findings Check Surgery Details section. Procedure Specimens Taken Check Surgery Details section.
--- OUTSIDE RECORDS SUMMARY | 2024-01-17 15:25 | XMS_ITS | Clinical Summary ---
Author Organization [facility] Address [address] [place] [address] Care Team Providers Care Reinsurance Clerk Name Role Phone Unavailable Primary Care Provider Unavailabl e Source Comments Patient records contain information from all sites at [facility]. For routine questions regarding patient records, call [phone] during business hours, M-F 8:00 AM - 5:00 PM Central Time. Record requests for emergency care only can be directed to [phone] at any time.[facility] Medications * This document contains information received from the source organization and may not represent a complete record from that organization. tadalafiL (Cialis) 5 mg tablet Take 1 tablet (5 mg total) by mouth daily. 30 tablet 11 12/02/2022 Active Social History Tobacco Use Types Packs/Day Years Used Date Smoking Tobacco: Never Assessed Nutrition Answer Date Recorded Nutrition: EVOO Fat Source Unknown 11/07 Nutrition: Servings of Fruits/Vegetables per Day Not on file 11/07/2021 Dental Answer Date Recorded Dental: Regular Dentist Unknown 11/08/19 Sex and Gender Information Value Date Recorded Sex Assigned at Not on file Legal Sex Male 9:57 AM CDT Gender Identity Not on file Sexual Orientation Not on file Last Filed Vital Signs Vital Sign Reading Time Taken Comments Blood Pressure 125/82 11/19/2021 9:56 AM CDT Pulse 72 11/19/2021 9:56 AM CDT Temperature - - Respiratory Rate - - Oxygen Saturation - - Inhaled Oxygen Concentration - - Weight - - Height - - Body Mass Index - - Plan of Treatment Upcoming Encounters Date Type Department Care Team (Late st Contact Info) Description 01/22/2024 9:45 AM SUPERVISOR BLOOD Clinical Communication Virtual Review in [place], [place] [address] [place] [phone] 01/25/2024 1:45 PM SUPERVISOR BLOOD Telemedicine Department of Urology in [place], [place] [address] [place] [phone] Elina Kim P.A.-C. [address] [place] [phone] Health Maintenance Due Date Last Done Comments CT Colonography 1955 Cologuard 1955 Colonoscopy 1955 Colorectal Cancer Screening 1955 FIT 1955 Hepatitis C Screening 1955 IPV Vaccines (2 of 3 - Adult catch-up series) 04/03/1993 03/06/1993 Depression Screening (Annual PHQ-2) 03/02/2023 Fall Risk Screen (Annual) 03/02/2023 COVID-19 Vaccine (4 - 2023-2 5 season) 2023 12/19/2020, 05/25/2020, 05/05/2020 Influenza Vaccine (#1) 2023 , 11/27/2021, 11/30/2020, Additional history exists Fasting Glucose for Diabetes Screening 07/22/2024 07/22/2021, 04/07/2018 DTaP,Tdap,and Td Vaccines (2 - Td or Tdap) 09/20/2024 09/20/2014, 03/27/2005, 03/27/2005, Additional history exists Zoster Vaccines Completed 10/11/2018, 04/07/2018 Pneumococcal vaccine (65+ years) Completed 08/22/19 Insurance MEDICARE [facility]
--- OUTSIDE RECORDS SUMMARY | 2024-01-17 15:25 | XMS_ITS | Referral Summary ---
Author Organization [facility] Address [address] [place] [address] Care Team Providers Care Hand Laster Name Role Phone Unavailable Primary Care Provider Unavailabl e Source Comments Patient records contain information from all sites at [facility]. For routine questions regarding patient records, call [phone] during business hours, M-F 8:00 AM - 5:00 PM Central Time. Record requests for emergency care only can be directed to [phone] at any time.[facility] Medications * This document contains information received [...] st Contact Info) Description 01/22/2024 9:45 AM MINE SUPERVISOR Clinical Communication Virtual Review in [place], [place] [address] [place] [address] 01/25/2024 1:45 PM MINE SUPERVISOR Telemedicine Department of Urology in [place], [place] [address] [place] [address] Elina Kim P.A.-C. [address] [place] [address] Insurance MEDICARE [facility]
--- OUTSIDE RECORDS SUMMARY | 2024-01-17 15:25 | XMS_ITS | Clinical Summary ---
Author Organization [facility] Address [place], [place] [address] Care Team Providers Care Taper And Floater Name Role Phone Martin Rowe MD Primary Care Provider [phone]- [phone] Allergies No known active allergies Medications No known medications Active Problems Problem Noted Date Diagnosed Date Elevated PSA 07/17/2020 Overview (07/22/2021): Patient prefers yearly digital rectal exams of his prostate. Immunizations Name Administration Dates Next Due COVID-19 vaccine ([employer] NTHipGeo 30mcg/0.3mL) PF, MDJanis 12/19/2020,05/25/2020,05/05/2020 Hepatitis A (Adult) 01/30/2006,03/17/2005 Hepatitis A, [...] 07/26/2021, 07/24/2020 COVID-19 vaccine series ( season) 2023 12/19/2020, 05/25/2020, 05/05/2020 Influenza for age 65+ [...] Maintenance Results * OCCULT BLOOD IFOBT STOOL [[id number]] (07/26/2021 3:25 PM CDT) STOOL BLOOD ,IFOBT Negative Negative 08/07/2021 3:36 PM CDT [facility] [place] Stool STOOL SPECIMEN / Unknown Non-Blood / Unknown 07/26/2021 3:25 PM CDT 08/07/2021 3:25 PM CDT Martin Rowe MD LABORATORY Performing Organization Address City/[facility]/ZIP Co de Phone Number [facility] [place] [address] [place] [address], * LIPID PANEL W REFLEX MEASURED LDL (07/22/2021 9:03 AM CDT) CHOLESTEROL,TOTAL 181 100 - 199 mg/dL 07/22/2021 5:28 PM CDT [facility] LABORATORY-[facility] TRAL LABORATORY TRIGLYCERIDES 61 <150 mg/dL 07/22/2021 5:28 PM CDT [facility] TRAL LAB[facility] HDL CHOLESTEROL 57 >40 mg/dL 5:28 PM CDT [facility] TRAL LABOR[facility]ORY NON-HDL CHOLESTEROL 124 <145 mg/dl 07/22/2021 5:28 PM CDT [facility] TRAL LABORATORY CHOL/HDL RATIO 3.18 <4.50 07/22/2021 5:28 PM CDT [facility] TRAL LABORATORY LDL CHOLESTEROL 112 <=130 mg/dL 07/22/2021 5:28 PM CDT [facility] TRAL LABORATORY VLDL CHOLESTEROL 12 <=30 mg/dL 07/22/2021 5:28 PM CDT [facility] TRAL LABORATORY PROVIDER ORDERED STATUS RANDOM 07/22/2021 5:28 PM CDT [facility] TRAL LABORATORY Blood BLOOD SPECIMEN / Unknown Venipuncture / Unknown 07/22/2021 9:03 AM CDT 07/22/2021 9:07 AM CDT Martin Rowe MD CHEMISTRY [facility] [address] [place] [address], [place] * ANTI HCV (07/22/2021 9:03 AM CDT) HEPATITIS C ANTIBODY Non-React trev Non-React trev 07/22/2021 5:38 PM CDT [facility] LABORAT[facility] Comment:Antibodies to HCV no t detected; does not exclude the possibility of exposure to HCV. Blood BLOOD SPECIMEN / Unknown Venipuncture / Unknown 07/22/2021 9:03 AM CDT 07/22/2021 9:07 AM CDT Martin Rowe MD SEND OUTS [facility] LAB[facility]AT[facility]ATORY [address] [place] [address], from Last 3 Months or Most Recently Relevant to Health Maintenance Advance Directives Documents on File Type Date Recorded Patient Mold Parter Expl anation Healthcare Directive 10/14/2021 3:37 PM HE ALTH CARE DIRECTIVE 10/09/2021 Care Teams Taper And Floater Relationship Specialty Start Date End Date Martin Rowe MD [address] [place] [address] PCP - General Family Practice 07/22/21
--- OUTSIDE RECORDS SUMMARY | 2024-01-17 15:25 | XMS_ITS | Clinical Summary ---
Author Organization [facility] Address [address] [place] [address] Care Team Providers Care Neurology Technician Name Role Phone Howard Becerra MD Primary Care Provide r Verito Montoya PA-C Unavailable [phone]- [phone] Weight, Jose Maria Zamora MD Unavailable [phone]- [phone] SantiagoBlayne MD Unavailable [phone] Allergies Active Allergy Reactions Criticality Noted Date Comments No Known Drug Allergy 03/29/2004 Medications ranitidine (ZANTAC) 150 MG tabletIndication s:Gastroesophage al reflux disease, esophagitis presence not specified Take 1 tablet (150 mg) by mouth daily 180 tablet 3 9 Active Additional Information Patient not taking.Reported on 10/19/2018 cyclobenzaprine (FLEXERIL) 10 MG tabletIndication s:Low back pain, unspecified back pain laterality, unspecified chronicity, with sciatica presence unspecified Take 0.5-1 tablets (5-10 mg) by mouth 3 times daily as needed for muscle spasms 21 tablet 9 Active Additional Information Patient not taking.Reported on 10/19/2018 meloxicam (MOBIC) 15 MG tabletIndication s:Low back pain, unspecified back pain laterality, unspecified chronicity, with sciatica presence unspecified Take 1 tablet (15 mg) by mouth daily 10 tablet 9 Active Additional Information Patient not taking.Reported on [...] Sex Assigned at Male 05/02/2020 9:45 AM ASSEMBLY MEMBER Legal Sex Male 3:06 AM ASSEMBLY MEMBER Gender Identity Male 05/02/2020 9:45 AM ASSEMBLY MEMBER Sexual Orientation Straight 05/02/2020 9: 45 AM ASSEMBLY MEMBER 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 on file Not on file Not on file Last Filed Vital Signs Vital Sign Reading Time Taken Comments Blood Pressure 135/80 10/19/2018 10:59 AM CDT Pulse 74 10/19/2018 10:59 AM CDT Temperature 36.6 ??C (97.8 ??F) 04/07/2018 7:53 AM CS T Respiratory Rate 16 04/07/2018 7:53 AM ASSEMBLY MEMBER Oxygen Saturation 99% 04/07/2018 7:53 AM ASSEMBLY MEMBER Inhaled Oxygen Concentration - - Weight 79.6 kg (175 lb 8 oz) 04/07/2018 7:53 AM ASSEMBLY MEMBER Height 182.9 cm (6') 04/07/2018 7:53 AM ASSEMBLY MEMBER Body Mass Index 23.8 04/07/2018 7:53 AM ASSEMBLY MEMBER Plan of Treatment Not on file Insurance [facility] FEDER[employer] EMPLOYEE PROGRAM Advance Directives For more information, please contact: [phone] * Full Code (Latest Code Status on File) Date Activated Date Inactivated Comments 04/09/2012 12:34 PM * No Code Status Date Activated Date Inactivated Comments 04/01/2004 6:53 AM 04/01/2004 7:53 AM Care Teams Neurology Technician Relationship Specialty Start Date End Date Howard Becerra MD PCP - General Family Practice 09/07/14 Verito Montoya PA-C [address] [place] [address] [address] [place] [address] Physician Gospel Worker Physician Gospel Worker 02/26/15 Jose Maria Ruiz MD [address] [place] [address] Urology 03/16/17 Blayne Henderson MD [address] [place] [address] Dermatology 09/21/18
--- OUTSIDE RECORDS SUMMARY | 2024-01-17 15:25 | XMS_ITS | Clinical Summary ---
Author Organization [facility] Address [address], [place] [address] Care Team Providers Care Aquaculturist Name Role Phone No Primary/Referring, Shai Primary Care Provider Unavailable Source Comments You are receiving this document as you are listed as the primary care provider,follow-up provider, or the patient has been referred to you for consultation.This is in compliance with the Medicare and[facility] Cent[facility]aid EHR Incentive Program,which states Providers who transition their patient to another setting of careor provider of care or refers their patient to another provider of care shouldprovide summary care record for each transition of care or referral. [facility] Allergies No known active allergies Medications No known medications Active Problems Problem Noted Date Diagnosed Date Right knee pain 11/13/2012 Overview (10/22/2016): Patellofemoral syndrome, right knee Immunizations Name Administration [...] 77.1 kg (170 lb) 03/24/2019 9:16 AM EYE CARE PROFESSIONAL Height 185.4 cm (6' 1) 03/24/2019 9:16 AM EYE CARE PROFESSIONAL Body Mass Index 22.43 03/24/2019 9:16 AM EYE CARE PROFESSIONAL Plan of Treatment Health Maintenance Due Date Last Done Comments Colon Cancer Screening Plan Due 1955 Hep C Screening (Preventive Services) 1955 PSA Screening Discussion 1955 Adult Preventive Visit 10/29/1973 Cholesterol 10/29/1990 Pneumococcal 65+ Yrs (1 - PCV) 10/29/2020 COVID-19 Vaccine (3 - season) 2023 05/25/2020, 05/05/2020 Influenza (#1) 2023 11/28/2019, 12/31, 11/14/2017, Additional history exists DTaP/Tdap/Td (2 - Tdap) 09/20/2024 09/21/19 15, 03/27/2005, 03/06/1993 RSV (1 - 1-dose 75+ series) 10/29/2030 IPV (Polio) Aged Out 03/06/1993 No longer [...] on patient's age to complete this topic RSV Aged Out No longer eligi ble based on patient's age to complete this topic [email or web address] Aged Out No longer eligi ble based on patient's age to complete this topic Care Teams Aquaculturist Relationship Specialty Start Date End Date No Primary/Referring, Phy PCP - General 12/15/17
--- OUTSIDE RECORDS SUMMARY | 2024-01-17 15:26 | XMS_ITS | Encounter Summary ---
Author Organization [facility] Address [address] [place] [address] Care Team Providers Care Wind Turbine Erector Name Role Phone Howard Becerra MD Primary Care Provide r Verito Montoya PA-C Unavailable [phone]- [phone] Weight, Jose Maria Zamora MD Unavailable [phone]- [phone] Howard Becerra MD Unavailable [phone]- [phone] SantiagoBlayne coleman MD Unavailable [phone] Henry Gupta MD Unavailable Verito Montoya PA-C Unavailable [phone]- [phone] Reason for Visit * Reason Onset Date Comments Appointment 07/23/2018 Cryotherapy Encounter Details Date Type Department Care Team (Late st Contact Info) Description 07/23/2018 Telephone [facility] Dermatology [address] [facility] [address] [place] [address] Verito Montoya PA-C [address] [place], [place] [phone] Appointment (Cryotherapy) Social History Tobacco Use Types Packs/Day Years Used Date Smoking Tobacco: Never Smokeless Tobacco: Never Alcohol Use Standard Drinks/Week Comments Yes 0 (1 standard drink = 0.6 oz pur e alcohol) 6 drinks per week - red wine- PHQ-2 Answer Date Recorded PHQ-2 Score 0 04/07/2018 Sex and Gender Information Value Date Recorded Sex Assigned at Male 05/02/2020 9:45 AM BREAK OFF WORKER Legal Sex Male 3:06 AM BREAK OFF WORKER Gender Identity Male 05/02/2020 9:45 AM BREAK OFF WORKER Sexual Orientation Straight 05/02/2020 9: 45 AM BREAK OFF WORKER 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 on file Not on file Not on file documented as of this encounter Miscellaneous Notes * Telephone Encounter - CrystalShreyas ramírez - 07/23/2018 11:53 AM CDT [facility] [...] on filedocumented in this encounter Care Teams Wind Turbine Erector Relationship Specialty Start Date End Date Howard Becerra MD PCP - General Family Practice 09/07/14 Verito Montoya PA-C [address] [facility] 98 [place], [place] [address] Physician Cable Dispatcher Physician Cable Dispatcher 02/26/15 Jose Maria Ruiz MD [address] [place] [address] Urology 03/16/17 Howard Becerra MD [address] [place] [id number] Assigned PCP 10/01/14 04/13/21 Blayne Henderson MD [address] [place] [address] [phone] Dermatology 09/21/18 Henry Gupta MD [address] [place] [address] Assigned Surgical Provider 12/23/19 04/21/20 Verito Montoya PA-C [address] [place] [address] Assigned Pediatric Specialist Provider 12/23/19 04/01/20 documented as of this encounter
--- OUTSIDE RECORDS SUMMARY | 2024-01-17 15:26 | XMS_ITS | Encounter Summary ---
Author Organization [facility] Address [address] [place] [address] Care Team Providers Care Shirt Trimmer Name Role Phone Howard Becerra MD Primary Care Provide r Verito Montoya PA-C Unavailable [phone]- [phone] Weight, Jose Maria Zamora MD Unavailable [phone] Howard Becerra MD Unavailable [phone]- [phone] SantiagoBlayne coleman MD Unavailable [phone] Henry Gupta MD Unavailable Verito Montoya PA-C Unavailable [phone]- [phone] Reason for Visit * Reason Onset Date Comments Appointment 07/30/2018 Dermatofibroma r emoval Encounter Details Date Type Department Care Team (Late st Contact Info) Description 07/30/2018 Telephone [facility] Dermatology 9[address] [facility] [address] [place] [address] Verito Montoya PA-C [address] [place], [place] [phone] Appointment (Dermatofibroma removal) Social History Tobacco Use Types Packs/Day Years Used Date Smoking Tobacco: Never Smokeless Tobacco: Never Alcohol Use Standard Drinks/Week Comments Yes 0 (1 standard drink = 0.6 oz pur e alcohol) 6 drinks per week - red wine- PHQ-2 Answer Date Recorded PHQ-2 Score 0 04/07/2018 Sex and Gender Information Value Date Recorded Sex Assigned at Male 05/02/2020 9:45 AM PLASTIC FINISHER Legal Sex Male 3:06 AM PLASTIC FINISHER Gender Identity Male 05/02/2020 9:45 AM PLASTIC FINISHER Sexual Orientation Straight 05/02/2020 9: 45 AM PLASTIC FINISHER 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 on file Not on file Not on file documented as of this encounter Miscellaneous Notes * Telephone Encounter - Radha Elder - 07/30/2018 3:38 PM CDT [facility] [...] on filedocumented in this encounter Care Teams Shirt Trimmer Relationship Specialty Start Date End Date Howard Becerra MD PCP - General Family Practice 09/07/14 Verito Montoya PA-C [address] [facility] 98 [place] [address] Physician Sole Layer Hand Physician Sole Layer Hand 02/26/15 Jose Maria Ruiz MD [address] [place] [address] Urology 03/16/17 [place] [address] [place] [address] Assigned PCP 10/01/14 04/13/21 Blayne Henderson MD [address] [place] [address] Dermatology 09/21/18 Henry Gupta MD [address] [place] [address] Assigned Surgical Provider 12/23/19 04/21/20 Verito Montoya PA-C [address] [place] [address] Assigned Pediatric Specialist Provider 12/23/19 04/01/20 documented as of this encounter
--- OUTSIDE RECORDS SUMMARY | 2024-01-17 15:26 | XMS_ITS | Referral Summary ---
Author Organization [facility] Address [address] [place] [address] Care Team Providers Care Armorer Technician Name Role Phone Howard Becerra MD Primary Care Provide r Verito Montoya PA-C Unavailable [phone]- [phone] Weight, Jose Maria Zamora MD Unavailable [phone] SantiagoBlayne MD Unavailable [phone] Allergies Active Allergy Reactions Criticality Noted Date [...] Sex Assigned at Male 05/02/2020 9:45 AM STITCH BONDING MACHINE TENDER Legal Sex Male 3:06 AM STITCH BONDING MACHINE TENDER Gender Identity Male 05/02/2020 9:45 AM STITCH BONDING MACHINE TENDER Sexual Orientation Straight 05/02/2020 9: 45 AM STITCH BONDING MACHINE TENDER 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 on file Not on file Not on file Last Filed Vital Signs Vital Sign Reading Time Taken Comments Blood Pressure 135/80 10/19/2018 10:59 AM CDT Pulse 74 10/19/2018 10:59 AM CDT Temperature 36.6 ??C (97.8 ??F) 04/07/2018 7:53 AM CS T Respiratory Rate 16 04/07/2018 7:53 AM STITCH BONDING MACHINE TENDER Oxygen Saturation 99% 04/07/2018 7:53 AM STITCH BONDING MACHINE TENDER Inhaled Oxygen Concentration - - Weight 79.6 kg (175 lb 8 oz) 04/07/2018 7:53 AM STITCH BONDING MACHINE TENDER Height 182.9 cm (6') 04/07/2018 7:53 AM STITCH BONDING MACHINE TENDER Body Mass Index 23.8 04/07/2018 7:53 AM STITCH BONDING MACHINE TENDER Plan of Treatment Not on file Insurance [id number] [employer]PLOY[employer] PRO[employer] Advance Directives For more information, please contact: [phone] * Full Code (Latest Code Status on File) Date Activated Date Inactivated Comments 04/09/2012 12:34 PM * No Code Status Date Activated Date Inactivated Comments 04/01/2004 6:53 AM 04/01/2004 7:53 AM Care Teams Armorer Technician Relationship Specialty Start Date End Date Howard Becerra MD PCP - General Family Practice 09/07/14 Verito Montoya PA-C [address] [place] [address] 98 [place], [place] [address] Physician Tar Heater Operator Physician Tar Heater Operator 02/26/15 Jose Maria Ruiz MD [address] [place] [id number] Urology 03/16/17 Blayne Henderson MD [address] [place] [address] [place] [address] Dermatology 09/21/18
--- OUTSIDE RECORDS SUMMARY | 2024-01-17 15:26 | XMS_ITS | Encounter Summary ---
Author Organization [facility] Address [address] [place] [address] Care Team Providers Care Unloading Checker Name Role Phone Howard Becerra MD Primary Care Provide r Verito Montoya PA-C Unavailable +1- [phone] Weight, Jose Maria Zamora MD Unavailable +1- [phone] Howard Becerra MD Unavailable +1- [phone] Howard Becerra MD Unavailable +1- [phone] Blayne Henderson MD Unavailable [phone] Henry Gupta MD Unavailable Verito Montoya PA-C Unavailable +1- [phone] Reason for Visit * Reason Onset Date Comments Refill Request 04/07/2018 ranitidine Encounter Details Date Type Department Care Team (Late st Contact Info) Description 04/07/[address] [address] Howard Becerra MD [address] [address] Refill Request (ranitidine ) Social [...] Sex Assigned at Male 05/02/2020 9:45 AM BLEACH PACKER Legal Sex Male 3:06 AM BLEACH PACKER Gender Identity Male 05/02/2020 9:45 AM BLEACH PACKER Sexual Orientation Straight 05/02/2020 9: 45 AM BLEACH PACKER 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 on file Not on file Not on file documented as of this encounter Miscellaneous Notes * Telephone Encounter - Lino Lindquist RN - 04/07/2018 8:40 AM BLEACH PACKER This med was hx. Pt was seen in clinic on 04/07/18. Please send in refill. MAKENNA Huynh CH PACKER documented in this encounter Plan of Treatment Not on file documented as of this encounter Visit Diagnoses Diagnosis Gastroesophageal reflux disease, esophagitis presence not specified- Primary documented in this encounter Care Teams Unloading Checker Relationship Specialty Start Date End Date Howard Becerra MD PCP - General Family Practice 09/07/14 [place] [address] [place] [address] PCP - Assigned PCP 10/01/14 05/04/18 Verito Montoya PA-C [address] [place] [address] 98 [place], [place] [phone] Physician Clerical Aide Teacher Physician Clerical Aide Teacher 02/26/15 Jose Maria Ruiz MD [address] [place] [id number] Urology 03/16/17 Howard Becerra MD [address] [address] Assigned PCP 10/01/14 04/13/21 Blayne Henderson MD [address] [place] [address] MD Lilly 09/21/18 Henry Gupta MD [address] [place] [address] Assigned Surgical Provider 12/23/19 04/21/20 Verito Montoya PA-C [address] [place] [address] Assigned Pediatric Specialist Provider 12/23/19 04/01/20 documented as of this encounter
--- OUTSIDE RECORDS SUMMARY | 2024-01-17 15:26 | XMS_ITS | Encounter Summary ---
Author Organization [facility] Address [address] [place] [address] Care Team Providers Care Billposter Name Role Phone Howard Becerra MD Primary Care Provide r Verito Montoya PA-C Unavailable +1- [phone] Weight, Jose Maria Zamora MD Unavailable [phone]- [phone] Howard Becerra MD Unavailable [phone]- [phone] SantiagoBlayne MD Unavailable [phone] Henry Gupta MD Unavailable Verito Montoya PA-C Unavailable [phone]- [phone] Encounter Details Date Type Department Care Team (Late st Contact Info) Description 07/30/2018 [facility] Dermatology [address] [address] Verito Montoya PA-C 830 [place], [place] [id number] Social History Tobacco Use Types Packs/Day Years Used Date Smoking Tobacco: Never Smokeless Tobacco: Never Alcohol Use Standard Drinks/Week Comments Yes 0 (1 standard drink = 0.6 oz pur e alcohol) 6 drinks per week - red wine- PHQ-2 Answer Date Recorded PHQ-2 Score 0 04/07/2018 Sex and Gender Information Value Date Recorded Sex Assigned at Male 05/02/2020 9:45 AM FOUNDRY EQUIPMENT MECHANIC Legal Sex Male 3:06 AM FOUNDRY EQUIPMENT MECHANIC Gender Identity Male 05/02/2020 9:45 AM FOUNDRY EQUIPMENT MECHANIC Sexual Orientation Straight 05/02/2020 9: 45 AM FOUNDRY EQUIPMENT MECHANIC Occupation Industry Job Start Date Job End [...] they get inflamed. Please call us at [phone] or let us know what your schedule looks like so we can get you scheduled with Dr. Gupta. Thanks, Macie Obrien CMA documented in this encounter Plan of Treatment Not on file documented as of this encounter Visit Diagnoses Not on filedocumented in this encounter Care Teams Billposter Relationship Specialty Start Date End Date Howard Becerra MD PCP - General Family Practice 09/07/14 Verito Montoya PA-C 420 [facility] 98 [place], [place] [phone] Physician Slubber Operator Physician Slubber Operator 02/26/15 Jose Maria Ruiz MD 909 [place], [place] 9[address] Urology 03/16/17 Howard Becerra MD 2270 [facility] 200 [place] [address] Assigned PCP 10/01/14 04/13/21 Blayne Henderson MD 9 [place], [place] [id number] MD [facility] 09/21/18 Henry Gupta MD 9 [place], [place] [phone] Assigned Surgical Provider 12/23/19 04/21/20 Verito Montoya PA-C [address] [place] [address] [id number] Assigned Pediatric Specialist Provider 12/23/19 04/01/20 documented as of this encounter
--- OUTSIDE RECORDS SUMMARY | 2024-01-17 15:26 | XMS_ITS | Encounter Summary ---
Author Organization [facility] Address [address] [place] [address] Care Team Providers Care Fiberglass Auto Body Repairer Name Role Phone oHward Becerra MD Primary Care Provide r Verito Montoya PA-C Unavailable +1- [phone] Weight, Jose Maria Zamora MD Unavailable +1- [phone] Howard Becerra MD Unavailable +1- [phone] Howard Becerra MD Unavailable [phone]- [phone] Blayne Henderson MD Unavailable [phone] Henry Gupta MD Unavailable Verito Montoya PA-C Unavailable +[phone]- [phone] Encounter Details Date Type Department Care Team (Late st Contact Info) Description 03/30/[address] [address] [facility] Social History Tobacco Use Types Packs/Day Years Used Date Smoking Tobacco: Never Smokeless Tobacco: Never Alcohol Use Standard Drinks/Week Comments Yes 0 (1 standard drink = 0.6 oz pure alcohol) 8-10 drinks per week - red wine- PHQ-2 Answer Date Recorded PHQ-2 Score 0 03/09/2018 Sex and Gender Information Value Date Recorded Sex Assigned at Male 05/02/2020 9:45 AM STRAIGHTEDGE WORKER Legal Sex Male 3:06 AM STRAIGHTEDGE WORKER Gender Identity Male 05/02/2020 9:45 AM STRAIGHTEDGE WORKER Sexual Orientation Straight 05/02/2020 9: 45 AM STRAIGHTEDGE WORKER 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 on file Not on file Not on file documented as of this encounter Plan of Treatment Not on file documented as of this encounter Visit Diagnoses Not on filedocumented in this encounter Care Teams Fiberglass Auto Body Repairer Relationship Specialty Start Date End Date Howard Becerra MD PCP - General Family Practice 09/07/14 Howard Becerra MD [address] [address] PCP - Assigned PCP 10/01/14 05/04/18 Verito Montoya PA-C [address] [place] [id number] Physician Burlap Man Physician Burlap Man 02/26/15 Jose Maria Ruiz MD [address] [place] [address] 730855 Urology 03/16/17 Howard Becerra MD [address] [address] Assigned PCP 10/01/14 04/13/21 Blayne Henderson MD [address] [place] [address] Dermatology 09/21/18 Henry Gupta MD [address] [place] [address] [id number] Assigned Surgical Provider 12/23/19 04/21/20 Verito Montoya PA-C [address] [place] [address] Assigned Pediatric Specialist Provider 12/23/19 04/01/20 documented as of this encounter
--- OUTSIDE RECORDS SUMMARY | 2024-01-17 15:26 | XMS_ITS | Encounter Summary ---
Author Organization [facility] Address [address] [place] [address] Care Team Providers Care Line Repairer Name Role Phone Howard Becerra MD Primary Care Provide r Verito Montoya PA-C Unavailable +1- [phone] Weight, Jose Maria Zamora MD Unavailable +1- [phone] Howard Becerra MD Unavailable +1- [phone] SantiagoBlayne MD Unavailable [phone] Encounter Details Date Type Department Care Team (Late st Contact Info) Description 07/09/2020 [facility] Clinical Research [address] [place] [phone] Vic Sun Social History Tobacco Use Types Packs/Day Years Used Date Smoking Tobacco: Never Smokeless Tobacco: Never Alcohol Use Standard Drinks/Week Comments Yes 0 (1 standard drink = 0.6 oz pur e alcohol) 6 drinks per week - red wine- PHQ-2 Answer Date Recorded PHQ-2 Score 0 04/07/2018 Sex and Gender Information Value Date Recorded Sex Assigned at Male 05/02/2020 9:45 AM UI LEAD DEVELOPER Legal Sex Male 3:06 AM UI LEAD DEVELOPER Gender Identity Male 05/02/2020 9:45 AM UI LEAD DEVELOPER Sexual Orientation Straight 05/02/2020 9: 45 AM UI LEAD DEVELOPER 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 on file Not on file Not on file documented as of this encounter Plan of Treatment Not on file documented as of this encounter Visit Diagnoses Not on filedocumented in this encounter Care Teams Line Repairer Relationship Specialty Start Date End Date Howard Becerra MD PCP - General Family Practice 09/07/14 Verito Montoya PA-C 420 [facility] 98 [place] [address] Physician Fence Maker Physician Fence Maker 02/26/15 Jose Maria Ruiz MD 909 [place] [address] Urology 03/16/17 Howard Becerra MD [address] [address] Assigned PCP 10/01/14 04/13/21 Blayne Henderson MD 909 [place], [place] 9[address] Dermatology 09/21/18 documented as of this encounter
--- OUTSIDE RECORDS SUMMARY | 2024-01-17 15:26 | XMS_ITS | Encounter Summary ---
Author Organization [facility] Address [address] [place] [address] Care Team Providers Care Restaurant Kitchen And Service Manager Name Role Phone Howard Becerra MD Primary Care Provide r Verito Montoya PA-C Unavailable +1- [phone] Weight, Jose Maria Zamora MD Unavailable +1- [phone] Howard Becerra MD Unavailable +1- [phone] SantiagoBlayne coleman MD Unavailable [phone] Henry Gupta MD Unavailable Verito Montoya PA-C Unavailable +[phone]- [phone] Reason for Visit * Reason Onset Date Comments Appointment 09/08/2018 schedule surgery Encounter Details Date Type Department Care Team (Late st Contact Info) Description 09/08/2018 Telephone [facility] 909 [facility] [address] [place] [address] Verito Montoya PA-C 830 [place], [place] [phone] Appointment (schedule surgery ) Social History Tobacco [...] Sex Assigned at Male 05/02/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 Referral was placed 08/02/18. Patient is ready to schedule. Please call him and schedule in an appropriate time. Mae Quintero CMA * Telephone Encounter - Andre Perez - 09/08/2018 11:22 AM CDT [facility] Phone Message May a [...] on filedocumented in this encounter Care Teams Restaurant Kitchen And Service Manager Relationship Specialty Start Date End Date Howard Becerra MD PCP - General Family Practice 09/07/14 Verito Montoya PA-C 420 [facility] 98 [place], [place] [address] Physician Wheel Press Clerk Physician Wheel Press Clerk 02/26/15 Jose Maria Ruiz MD 909 [place] [address] Urology 03/16/17 Howard Becerra MD [address] [address] Assigned PCP 10/01/14 04/13/21 Blayne Henderson MD [address] [place] [phone] Dermatology 09/21/18 Henry Gupta MD 9 [place], [place] 3932[address] Assigned Surgical Provider 12/23/19 04/21/20 Verito Montoya PA-C [address] [place] [address] Assigned Pediatric Specialist Provider 12/23/19 04/01/20 documented as of this encounter
== END 2024-01-14 10:06 | disposition home or self-care (01) ==
LOC: NFLDREF 01-17 15:23
PROVIDERS: PCP Family Medicine; Referring Provider Family Medicine; Visit Provider Family Medicine
DX: R97.20 Elevated prostate specific antigen [PSA] (principal); Z12.5 Encounter for screening for malignant neoplasm of prostate
CPT/HCPCS: G0103

== ENCOUNTER 2024-08-23 08:31 | Outpatient (CLI) | payer MEDICARE, BC, SELFPAY | END 2024-08-23 08:32 | disposition home or self-care (01) | LOC: NFLDREF 08-24 03:46 | PROVIDERS: PCP Family Medicine; Referring Provider Family Medicine; Visit Provider Family Medicine | DX: R73.01 Impaired fasting glucose (principal); R97.20 Elevated prostate specific antigen [PSA]; Z13.6 Encounter for screening for cardiovascular disorders; Z12.5 Encounter for screening for malignant neoplasm of prostate | CPT/HCPCS: 80053; 80061; G0103 ==